=== PATIENT | female | born 1935 | race Caucasian/White ===

== ENCOUNTER → 2016-10-02 | Outpatient (CLI) | payer MEDICARE, BC ==
[~2016-10-02] MED LIST: ASPI81TA11 OR; AZIT250T74 PO; GLUCTAB PO; GUAI100S6 PO; GUAI600 PO; Losartan Potassium PO; PRED5PAK PO; PROT40TA PO; VENL75 PO
[2016-10-02 09:31] LABS: AUTOMATED NEUTROPHIL # 4.9 TH/MM3 (1.8-7.7); BASOPHIL # 0.1 TH/MM3 (0-0.2); BASOPHIL % 0.9 % (0.0-2.0); EOSINOPHIL # 0.3 TH/MM3 (0-0.4); HEMATOCRIT 37.8 % (35.0-46.0); HEMO FLAGS DIFF FINAL; LYMPH % 20.1 % (9.0-44.0); LYMPHOCYTE # 1.4 TH/MM3 (1.0-4.8); MEAN CELL VOLUME 83.3 FL (80.0-100.0); MEAN CORPUSCULAR HEMOGLOBIN 26.8 PG (27.0-34.0); MEAN CORPUSCULAR HGB CONC 32.2 % (32.0-36.0); MONO % 5.5 % (0.0-8.0); NEUT % 69.5 % (16.0-70.0); PLATELET COUNT 200 TH/MM3 (150-450); RED BLOOD COUNT 4.53 MIL/MM3 (4.00-5.30); RED CELL DISTRIBUTION WIDTH 14.5 % (11.6-17.2)
[2016-10-02 09:50] LABS: ALKALINE PHOSPHATASE 61 U/L (45-117); ALT (GPT) 97 U/L (10-53); ANION GAP 9 MEQ/L (5-15); AST (GOT) 74 U/L (15-37); BICARBONATE 28.5 MEQ/L (21.0-32.0); BLOOD UREA NITROGEN 19 MG/DL (7-18); CHLORIDE 105 MEQ/L (98-107); GLOMERULAR FILTRATION RATE 49 ML/MIN (>89); GLUCOSE,FASTING 166 MG/DL (74-99); HDL CHOLESTEROL 39.4 MG/DL (40.0-60.0); LDL CHOLESTEROL 94 MG/DL (0-99); POTASSIUM 4.3 MEQ/L (3.5-5.1); SODIUM (NA) 142 MEQ/L (136-145); TOTAL BILIRUBIN ADULT 0.4 MG/DL (0.2-1.0)
[2016-10-02 16:14] LABS: HEMOGLOBIN A1b 2.6 %; HEMOGLOBIN Ao 81.8 %; HEMOGLOBIN LA1C 2.5 %; HEMOGLOBIN P3 4.4 %
== END ==
LOC: PLAB 07:27
PROVIDERS: ATTEND Family Medicine
DX: E11.40 Type 2 diabetes mellitus with diabetic neuropathy, unspecified (principal); E78.5 Hyperlipidemia, unspecified; I10 Essential (primary) hypertension
CPT/HCPCS: 36415; 80053; 80061; 83036; 84443; 85025

== ENCOUNTER → 2017-01-16 | Outpatient (CLI) | payer MEDICARE, BC | LOC: PLAB 15:25 | PROVIDERS: ATTEND Psychiatry & Neurology Neurology | DX: E11.42 Type 2 diabetes mellitus with diabetic polyneuropathy (principal) | CPT/HCPCS: 36415; 82607 ==

== ENCOUNTER → 2017-01-22 | Outpatient (CLI) | payer MEDICARE, BC ==
[2017-01-22 08:56] LABS: AUTOMATED NEUTROPHIL # 4.3 TH/MM3 (1.8-7.7); BASOPHIL # 0.1 TH/MM3 (0-0.2); BASOPHIL % 0.9 % (0.0-2.0); EOSINOPHIL # 0.3 TH/MM3 (0-0.4); EOSINOPHIL % 4.6 % (0.0-4.0); HEMATOCRIT 37.3 % (35.0-46.0); HEMO FLAGS DIFF FINAL; LYMPH % 21.4 % (9.0-44.0); LYMPHOCYTE # 1.4 TH/MM3 (1.0-4.8); MEAN CELL VOLUME 83.8 FL (80.0-100.0); MEAN CORPUSCULAR HEMOGLOBIN 26.9 PG (27.0-34.0); MEAN CORPUSCULAR HGB CONC 32.2 % (32.0-36.0); MONO % 6.2 % (0.0-8.0); NEUT % 66.9 % (16.0-70.0); PLATELET COUNT 215 TH/MM3 (150-450); RED BLOOD COUNT 4.46 MIL/MM3 (4.00-5.30); RED CELL DISTRIBUTION WIDTH 14.2 % (11.6-17.2); WHITE BLOOD COUNT 6.4 TH/MM3 (4.0-11.0)
[2017-01-22 10:39] LABS: ANION GAP 11 MEQ/L (5-15); AST (GOT) 72 U/L (15-37); BICARBONATE 24.5 MEQ/L (21.0-32.0); BLOOD UREA NITROGEN 23 MG/DL (7-18); CHLORIDE 107 MEQ/L (98-107); GLOMERULAR FILTRATION RATE 52 ML/MIN (>89); GLUCOSE,FASTING 174 MG/DL (74-99); POTASSIUM 4.3 MEQ/L (3.5-5.1); SODIUM (NA) 142 MEQ/L (136-145)
[2017-01-22 10:53] LABS: ALKALINE PHOSPHATASE 67 U/L (45-117); ALT (GPT) 100 U/L (10-53); HDL CHOLESTEROL 36.3 MG/DL (40.0-60.0); LDL CHOLESTEROL 114 MG/DL (0-99); TOTAL BILIRUBIN ADULT 0.3 MG/DL (0.2-1.0)
[2017-01-22 11:52] LABS: MICRO ALBUMIN RANDOM URINE RAW 28.9 MG/L (0.0-30.0)
[2017-01-22 16:49] LABS: HEMOGLOBIN A1a 1.1 %; HEMOGLOBIN A1b 2.5 %; HEMOGLOBIN Ao 80.6 %; HEMOGLOBIN LA1C 2.7 %; HEMOGLOBIN P3 4.6 %
== END ==
LOC: PLAB 07:10
PROVIDERS: ATTEND Family Medicine
DX: E78.5 Hyperlipidemia, unspecified (principal); I70.209 Unspecified atherosclerosis of native arteries of extremities, unspecified extremity; E11.40 Type 2 diabetes mellitus with diabetic neuropathy, unspecified; R74.8 Abnormal levels of other serum enzymes; Z51.81 Encounter for therapeutic drug level monitoring
CPT/HCPCS: 36415; 80053; 80061; 82043; 83036; 84443; 85025

== ENCOUNTER → 2017-04-09 | Outpatient (CLI) | payer MEDICARE, BC ==
[2017-04-09 09:36] LABS: ANION GAP 10 MEQ/L (5-15); AST (GOT) 53 U/L (15-37); BICARBONATE 25.2 MEQ/L (21.0-32.0); BLOOD UREA NITROGEN 15 MG/DL (7-18); CHLORIDE 105 MEQ/L (98-107); GLOMERULAR FILTRATION RATE 44 ML/MIN (>89); GLUCOSE,FASTING 289 MG/DL (74-99); POTASSIUM 4.5 MEQ/L (3.5-5.1); SODIUM (NA) 140 MEQ/L (136-145)
[2017-04-09 09:37] LABS: ALT (GPT) 87 U/L (10-53)
[2017-04-09 09:45] LABS: ALKALINE PHOSPHATASE 92 U/L (45-117); FREE T4 1.16 NG/DL (0.76-1.46); HDL CHOLESTEROL 39.7 MG/DL (40.0-60.0); LDL CHOLESTEROL 92 MG/DL (0-99); TOTAL BILIRUBIN ADULT 0.3 MG/DL (0.2-1.0)
[2017-04-09 10:29] LABS: MICRO ALBUMIN RANDOM URINE RAW 46.5 MG/L (0.0-30.0)
[2017-04-09 16:41] LABS: HEMOGLOBIN A1a 1.1 %; HEMOGLOBIN A1b 2.8 %; HEMOGLOBIN Ao 78.6 %; HEMOGLOBIN LA1C 3.7 %; HEMOGLOBIN P3 5.3 %
== END ==
LOC: PLAB 06:40
PROVIDERS: ATTEND Internal Medicine Endocrinology, Diabetes & Metabolism
DX: E11.9 Type 2 diabetes mellitus without complications (principal); I10 Essential (primary) hypertension; E78.5 Hyperlipidemia, unspecified; E55.9 Vitamin D deficiency, unspecified; E03.9 Hypothyroidism, unspecified
CPT/HCPCS: 36415; 80053; 80061; 82043; 82306; 83036; 84439; 84443

== ENCOUNTER → 2017-08-20 | Outpatient (CLI) | payer MEDICARE, BC ==
[2017-08-20 10:12] LABS: ALBUMIN 3.8 GM/DL (3.4-5.0); ALT (GPT) 74 U/L (10-53); AST (GOT) 66 U/L (15-37); BICARBONATE 28.4 MEQ/L (21.0-32.0); BLOOD UREA NITROGEN 16 MG/DL (7-18); CALCIUM 9.4 MG/DL (8.5-10.1); CHLORIDE 104 MEQ/L (98-107); CHOLESTEROL 165 MG/DL (120-200); CREATININE 1.13 MG/DL (0.50-1.00); GLOMERULAR FILTRATION RATE 46 ML/MIN (>89); GLUCOSE,FASTING 174 MG/DL (74-99); SODIUM (NA) 140 MEQ/L (136-145); TRIGLYCERIDES 258 MG/DL (42-150)
[2017-08-20 10:20] LABS: ALKALINE PHOSPHATASE 67 U/L (45-117); CHOLESTEROL/ HDL RATIO 5.22 RATIO; FREE T4 1.19 NG/DL (0.76-1.46); HDL CHOLESTEROL 31.6 MG/DL (40.0-60.0); LDL CHOLESTEROL 82 MG/DL (0-99); TOTAL BILIRUBIN ADULT 0.4 MG/DL (0.2-1.0); TOTAL PROTEIN 7.3 GM/DL (6.4-8.2)
[2017-08-20 16:48] LABS: HEMOGLOBIN A1C 7.5 % (4.3-6.0)
== END ==
LOC: PLAB 07:05
PROVIDERS: ATTEND Internal Medicine Endocrinology, Diabetes & Metabolism
DX: E11.9 Type 2 diabetes mellitus without complications (principal); E78.5 Hyperlipidemia, unspecified; E03.9 Hypothyroidism, unspecified; E55.9 Vitamin D deficiency, unspecified
CPT/HCPCS: 36415; 80053; 80061; 82043; 82306; 83036; 84439; 84443

== ENCOUNTER 2017-09-29 20:58 | Observation (INO) | payer MEDICARE, BC ==
[2017-09-29 21:03] VITALS: BP 173/78; PULSE 76; RESP 22; TEMP 98.7
--- NOTE | 2017-09-29 21:20 | PD ---
HPI Chief Complaint: Respiratory Symptoms Time Seen by Provider: 21:12 Travel History International Travel<30 days: No Contact w/Intl Traveler<30days: No Traveled to known affect area: No History of Present Illness HPI 82yo F with PMH of DM, COPD here with c/o sob and worsening cough for 1 week. Denies any fever, chest pain, n/v, abdominal pain, focal weakness or numbness. Pt uses oxygen at home at night about 2 L. Director Of Professional Services is Dr. Tellez. PFSH Past Medical History Arthritis: Yes (Hands,back) Anxiety: No Depression: Yes Cancer: Yes (SKIN KERATOSIS) Cardiovascular Problems: Yes High Cholesterol: Yes Chemotherapy: No Diabetes: Yes Diminished Hearing: No Diverticulitis: Yes Endocrine: Yes Gastrointestinal Disorders: Yes (DIVERTICULOSIS) GERD: Yes Genitourinary: No Hepatitis: Yes (HX HEP A, IMMUNIZATIONS FOR HEP B, FATTY LIVER) Hiatal Hernia: No Hypertension: No Immune Disorder: No Implanted Vascular Access Dvce: Yes Musculoskeletal: Yes Neurologic: Yes (UNSURE IF VERTIGO OR TIA) Psychiatric: Yes Reproductive: No Respiratory: Yes (COPD) Thyroid Disease: Yes ("LUMP ON EACH THYROID") PNEUMOCCOCAL Vaccine (Year): 2 Menopausal: Yes Ovarian Cysts: Yes Past Surgical History Abdominal Surgery: Yes (APPENDECTOMY) AICD: No Appendectomy: Yes Body Medical Devices: lens Cardiac Surgery: No Ear Surgery: No Endocrine Surgery: No Eye Surgery: Yes (LENS IMPLANT BILATERALLY) Genitourinary Surgery: No Gynecologic Surgery: Yes (OVARIAN CYST REMOVED MANY YEARS AGO) Joint Replacement: No Neurologic Surgery: No Oral Surgery: No Pacemaker: No Thoracic Surgery: No Other Surgery: Yes Social History Alcohol Use: Yes (RARELY) Tobacco Use: No Substance Use: No Allergies-Medications (Allergen,Severity, Reaction): Coded Allergies: No Known Allergies (Verified , 07/01/14) Reported Meds & Prescriptions Reported Meds & Active Scripts Active Prednisone 5 Mg Sam 5 Mg PO DIRECTED 5 Days [Losartan Potassium] 50 MG Tab 50 Mg PO DAILY Mucinex 600 Mg Tab (Guaifenesin) 600 Mg Tabcr 600 Mg PO BID Zithromax (Azithromycin) 250 Mg Tab 250 Mg PO DAILY Reported Effexor 75 Mg Tab (Venlafaxine HCl) 75 Mg Tab 75 Mg PO BID Protonix (Pantoprazole Sodium) 40 Mg Tabdr 40 Mg PO DAILY Robitussin Ac (Guaifenesin/Codeine Phosphate) Syrp 5-10 Ml PO Q6H PRN FOR COUGH Aspirin EC 81 mg (Aspirin) 81 Mg Tab 81 Mg OR DAILY Glucophage (Metformin HCl) 500 Mg Tab 850 Mg PO BID Review of Systems Except as stated in HPI: all other systems reviewed are Neg Physical Exam Narrative GENERAL: 82yo F in mild distress. SKIN: Focused skin assessment warm/dry. HEAD: Atraumatic. Normocephalic. EYES: Pupils equal and round. No scleral icterus. No injection or drainage. ENT: No nasal bleeding or discharge. Mucous membranes pink and moist. NECK: Trachea midline. No JVD. CARDIOVASCULAR: Regular rate and rhythm. No murmur appreciated. RESPIRATORY: + accessory muscle use. Expiratory wheezing bilaterally. GASTROINTESTINAL: Abdomen soft, non-tender, nondistended. MUSCULOSKELETAL: No obvious deformities. No clubbing. No cyanosis. No edema. NEUROLOGICAL: Awake and alert. No obvious cranial nerve deficits. Motor grossly within normal limits. Normal speech. PSYCHIATRIC: Appropriate mood and affect; insight and judgment normal. Data Data Last Documented VS Vital Signs Date Time Temp Pulse Resp B/P (MAP) Pulse Ox O2 Delivery O2 Flow Rate FiO2 09/29/17 21:55 85 20 149/73 (98) 96 09/29/17 21:55 Nasal Cannula 2.00 09/29/17 21:03 98.7 Orders Orders Complete Blood Count With Diff (09/29/17 21:17) Basic Metabolic Panel (Bmp) (09/29/17 21:17) Troponin I (09/29/17 21:17) Influenzae A/B Antigen (09/29/17 21:17) Electrocardiogram (09/29/17 21:17) Chest, Single Ap (09/29/17 21:17) Methylprednisolone So Succ Inj (Solumedr (09/29/17 21:30) Albuterol-Ipratropium Neb (Duoneb Neb) (09/29/17 21:30) Labs Laboratory Tests Test 09/29/17 21:30 White Blood Count 4.8 TH/MM3 Red Blood Count 4.53 MIL/MM3 Hemoglobin 12.3 GM/DL Hematocrit 37.1 % Mean Corpuscular Volume 82.0 FL Mean Corpuscular Hemoglobin 27.1 PG Mean Corpuscular Hemoglobin Concent 33.0 % Red Cell Distribution Width 14.0 % Platelet Count 167 TH/MM3 Mean Platelet Volume 8.9 FL Neutrophils (%) (Auto) 61.9 % Lymphocytes (%) (Auto) 22.7 % Monocytes (%) (Auto) 8.7 % Eosinophils (%) (Auto) 3.5 % Basophils (%) (Auto) 3.2 % Neutrophils # (Auto) 2.9 TH/MM3 Lymphocytes # (Auto) 1.1 TH/MM3 Monocytes # (Auto) 0.4 TH/MM3 Eosinophils # (Auto) 0.2 TH/MM3 Basophils # (Auto) 0.2 TH/MM3 CBC Comment DIFF FINAL Differential Comment Blood Urea Nitrogen 18 MG/DL Creatinine 1.00 MG/DL Random Glucose 184 MG/DL Calcium Level 8.5 MG/DL Sodium Level 140 MEQ/L Potassium Level 4.0 MEQ/L Chloride Level 105 MEQ/L Carbon Dioxide Level 25.3 MEQ/L Anion Gap 10 MEQ/L Estimat Glomerular Filtration Rate 53 ML/MIN Troponin I LESS THAN 0.02 NG/ML MDM Medical Decision Making Medical Screen Exam Complete: Yes Emergency Medical Condition: Yes Interpretation(s) EKG: NSR 70bpm. Normal axis. TWI V2, aVL. Differential Diagnosis COPD exacerbation vs. Pneumonia Narrative Course 82yo F with sob and cough for a week. Pt is wheezing bilaterally and given duonebs x3 and methylprednisolone 125mg IV. Labs reviewed, no leukocytosis. H/ H normal. Troponin negative. Influenza negative. CXR showed patchy airspace disease scattered in both lungs. Consideration would include inflammatory process. Pt reevaluated at bedside and is still sob and wheezing bilaterally. Will admit for observation. Discussed with Dr. Childers and accepted to her service. Diagnosis Primary Impression: COPD exacerbation Admitting Information Admitting Physician Requests: Observation Brittnee Goodman DO Sep 29, 2017 21:20
[2017-09-29] MEDS ORDERED: methylPREDNISolone SOD SUCC 125 MG/2 ML VIAL IV PUSH ONE (21:30)
[2017-09-29 21:37] VITALS: O2SAT 95
[2017-09-29] MEDS: RESP: ALBUTEROL 2.5 MG/IPRATROPIUM 0.5 MG NEB (SCH) INH ×3 (21:37→22:00)
[2017-09-29 21:40] LABS: AUTOMATED NEUTROPHIL # 2.9 TH/MM3 (1.8-7.7); BASOPHIL # 0.2 TH/MM3 (0-0.2); BASOPHIL % 3.2 % (0.0-2.0); EOSINOPHIL # 0.2 TH/MM3 (0-0.4); EOSINOPHIL % 3.5 % (0.0-4.0); HEMATOCRIT 37.1 % (35.0-46.0); HEMOGLOBIN 12.3 GM/DL (11.6-15.3); LYMPH % 22.7 % (9.0-44.0); LYMPHOCYTE # 1.1 TH/MM3 (1.0-4.8); MEAN CORPUSCULAR HEMOGLOBIN 27.1 PG (27.0-34.0); MEAN PLATELET VOLUME 8.9 FL (7.0-11.0); MONO % 8.7 % (0.0-8.0); MONOCYTE # 0.4 TH/MM3 (0-0.9); NEUT % 61.9 % (16.0-70.0); PLATELET COUNT 167 TH/MM3 (150-450); RED BLOOD COUNT 4.53 MIL/MM3 (4.00-5.30); WHITE BLOOD COUNT 4.8 TH/MM3 (4.0-11.0)
[2017-09-29 21:48] LABS: CHLORIDE 105 MEQ/L (98-107); SODIUM (NA) 140 MEQ/L (136-145)
[2017-09-29 21:51] LABS: CALCIUM 8.5 MG/DL (8.5-10.1)
[2017-09-29 21:52] LABS: BICARBONATE 25.3 MEQ/L (21.0-32.0); BLOOD UREA NITROGEN 18 MG/DL (7-18); GLUCOSE,RANDOM 184 MG/DL (74-106)
[2017-09-29 21:55] VITALS: BP 149/73; PULSE 85; RESP 20; O2SAT 96
[2017-09-29 21:55] LABS: GLOMERULAR FILTRATION RATE 53 ML/MIN (>89)
[2017-09-29 22:00] LABS: TROPONIN I LESS THAN 0.02 NG/ML (0.02-0.05)
--- NOTE | 2017-09-29 22:02 | RADRPT ---
EXAM DATE/TIME: 09/29/2017 21:44 [facility] COMPARISON: No previous studies available for comparison. INDICATIONS : Shortness of breath. MEDICAL HISTORY : Chronic obstructive pulmonary disease. SURGICAL HISTORY : None. ENCOUNTER: Initial ACUITY: 1 week PAIN SCORE: 0/10 LOCATION: Bilateral chest FINDINGS: Patchy airspace disease is seen in both right and left lungs with compensated cardiomegaly. No failu re, no pleural effusion or pneumothorax CONCLUSION: Patchy airspace disease scattered in both lungs. Consideration would include inflammatory process. Jose Farr MD FACR on September 29, 2017 at 21:59 Board Certified Radiologist. This report was verified electronically.
[2017-09-29 23:00] VITALS: BP 132/76; PULSE 84; RESP 20; O2SAT 98
[2017-09-29] MEDS ORDERED: GLUCAGON 1 MG/ML VIAL OTHER PRN (23:15)
[2017-09-29] MEDS ORDERED: MAGNESIUM HYDROXIDE SUSP 30 ML CUP PO PRN (23:15)
[2017-09-29] MEDS ORDERED: DEXTROSE 50% IN WATER 50 ML VIAL(D50) IV PUSH PRN (23:15)
[2017-09-29] MEDS ORDERED: ACETAMINOPHEN 325 MG TAB PO PRN (23:15)
[2017-09-29] MEDS ORDERED: ACETAMINOPHEN/HYDROcodone 325 MG/5 MG TAB PO PRN (23:15)
[2017-09-29] MEDS ORDERED: LACTULOSE SYRUP 20 GM/30 ML CUP PO PRN (23:15)
[2017-09-29] MEDS ORDERED: BISACODYL 10 MG SUPP RECTAL PRN (23:15)
[2017-09-29] MEDS ORDERED: SENNOSIDES 8.6 MG TAB PO PRN (23:15)
[2017-09-29] MEDS ORDERED: SODIUM CHLORIDE 0.9% FLUSH 10 ML FLUSH IV FLUSH PRN (23:15)
[2017-09-29] MEDS ORDERED: ONDANSETRON HCL 4 MG/2 ML VIAL IVP PRN (23:15)
[2017-09-29] MEDS ORDERED: ACETAMINOPHEN/HYDROcodone 325 MG/10 MG TAB PO PRN (23:15)
[2017-09-30] VITALS (7 sets, daily range): BP systolic 135–184; BP diastolic 73–103; PULSE 72–84; RESP 18–20; TEMP 96.4–98.7; O2SAT 91–96
[2017-09-30] MEDS: methylPREDNISolone SOD SUCC 40 MG/1 ML VIAL IV PUSH SCH ×4 (05:32→17:30)
[2017-09-30 07:30] LABS: BASOPHIL % 0.1 % (0.0-2.0); EOSINOPHIL % 0.1 % (0.0-4.0); HEMATOCRIT 36.9 % (35.0-46.0); HEMOGLOBIN 11.5 GM/DL (11.6-15.3); LYMPH % 11.4 % (9.0-44.0); LYMPHOCYTE # 0.4 TH/MM3 (1.0-4.8); MEAN CELL VOLUME 82.9 FL (80.0-100.0); MEAN CORPUSCULAR HEMOGLOBIN 25.8 PG (27.0-34.0); MEAN CORPUSCULAR HGB CONC 31.1 % (32.0-36.0); MEAN PLATELET VOLUME 10.1 FL (7.0-11.0); MONO % 1.5 % (0.0-8.0); MONOCYTE # 0.1 TH/MM3 (0-0.9); NEUT % 86.9 % (16.0-70.0); PLATELET COUNT 168 TH/MM3 (150-450); RED BLOOD COUNT 4.45 MIL/MM3 (4.00-5.30); RED CELL DISTRIBUTION WIDTH 14.1 % (11.6-17.2); WHITE BLOOD COUNT 3.5 TH/MM3 (4.0-11.0)
[2017-09-30 07:40] LABS: CHLORIDE 103 MEQ/L (98-107); SODIUM (NA) 138 MEQ/L (136-145)
[2017-09-30 07:45] LABS: ALBUMIN 3.2 GM/DL (3.4-5.0); BICARBONATE 24.7 MEQ/L (21.0-32.0)
[2017-09-30 07:57] LABS: ALKALINE PHOSPHATASE 59 U/L (45-117); ALT (GPT) 79 U/L (10-53); AST (GOT) 63 U/L (15-37); BLOOD UREA NITROGEN 20 MG/DL (7-18); GLUCOSE,RANDOM 388 MG/DL (74-106); TOTAL BILIRUBIN ADULT 0.4 MG/DL (0.2-1.0); TOTAL PROTEIN 7.1 GM/DL (6.4-8.2)
[2017-09-30 07:58] LABS: GLOMERULAR FILTRATION RATE 48 ML/MIN (>89)
[2017-09-30] MEDS ORDERED: INSULIN ASPART SUPPLEMENTAL SCALE SQ SCH (08:00)
[2017-09-30] MEDS: DOCUSATE SODIUM 50 MG/SENNA 8.6 MG TAB PO SCH ×2 (09:20→22:14)
[2017-09-30] MEDS: guaiFENesin E.R. 600 MG TAB PO SCH ×2 (09:20→22:14)
[2017-09-30] MEDS: SODIUM CHLORIDE 0.9% FLUSH 10 ML FLUSH IV FLUSH SCH ×2 (09:21→22:15)
[2017-09-30] MEDS: BUDESONIDE-FORMOTEROL 160/4.5 MCG INHALER INH SCH ×2 (09:50→21:00)
--- NOTE | 2017-09-30 11:49 | HHI.HP ---
HPI Service [facility] Hospitalists Primary Care Physician Eladio Muhammad MD Admission Diagnosis COPD exacerbation Diagnoses: Chief Complaint: Shortness of breath, wheezing Travel History International Travel<30 Days: No Contact w/Intl Traveler <30 Da: No Traveled to Known Affected Are: No History of Present Illness The patient is a very pleasant 82-year-old female with past medical history of COPD, diabetes mellitus who came to the emergency room with the worsening shortness of breath and cough for 1 week. Associated wheezing worsening. Patient says she follows with Dr. Tellez pulmonology as outpatient she is also using at times oxygen 2 L at night. She has a nonproductive cough but sometimes she notices clear or white sputum. She denies any fever or chills. Denies chest pain, no nausea or vomiting. No lightheadedness, diaphoresis. Review of Systems Except as stated in HPI: all other systems reviewed are Neg Past Family Social History Past Medical History COPD, diabetes mellitus Diverticulosis Past Surgical History Ovarian cyst removal Appendectomy Reported Medications Reported Meds & Active Scripts Active Prednisone 5 Mg Sam 5 Mg PO DIRECTED 5 Days [Losartan Potassium] 50 MG Tab 50 Mg PO DAILY Mucinex 600 Mg Tab (Guaifenesin) 600 Mg Tabcr 600 Mg PO BID Zithromax (Azithromycin) 250 Mg Tab 250 Mg PO DAILY Reported Effexor 75 Mg Tab (Venlafaxine HCl) 75 Mg Tab 75 Mg PO BID Protonix (Pantoprazole Sodium) 40 Mg Tabdr 40 Mg PO DAILY Robitussin Ac (Guaifenesin/Codeine Phosphate) Syrp 5-10 Ml PO Q6H PRN FOR COUGH Aspirin EC 81 mg (Aspirin) 81 Mg Tab 81 Mg OR DAILY Glucophage (Metformin HCl) 500 Mg Tab 850 Mg PO BID Allergies: Coded Allergies: No Known Allergies (Verified , 07/01/14) Family History Sister also has COPD Parents healthy. Does not know much about her father as she at young age Social History Quit smoking 30 years ago used to smoke 1 pack per day approximately 15 years. Denies alcohol use or illicit drug use. Physical Exam Vital Signs Vital Signs Date Time Temp Pulse Resp B/P (MAP) Pulse Ox O2 Delivery O2 Flow Rate FiO2 09/30/17 07:50 96.4 75 20 135/77 (96) 93 09/30/17 01:15 97.6 84 18 184/103 (130) 95 09/30/17 00:37 82 20 149/73 (98) 97 09/29/17 23:00 84 20 132/76 (94) 98 09/29/17 21:55 85 20 149/73 (98) 96 09/29/17 21:55 83 24 97 Nasal Cannula 2.00 09/29/17 21:37 95 Nasal Cannula 2.00 09/29/17 21:03 98.7 76 22 173/78 (109) Physical Exam GENERAL: This is a well-nourished, well-developed patient, in no apparent distress. SKIN: No rashes, ecchymoses or lesions. Cool and dry. HEAD: Atraumatic. Normocephalic. No temporal or scalp tenderness. EYES: Pupils equal round and reactive. Extraocular motions intact. No scleral icterus. No injection or drainage. ENT: Nose without bleeding, purulent drainage or septal hematoma. Throat without erythema, tonsillar hypertrophy or exudate. Uvula midline. Airway patent. NECK: Trachea midline. No JVD or lymphadenopathy. Supple, nontender, no meningeal signs. CARDIOVASCULAR: Regular rate and rhythm without murmurs, gallops, or rubs. RESPIRATORY: Decreased breath sounds. Scattered wheezing, bronchial sounds. Shortness of breath and cough GASTROINTESTINAL: Abdomen soft, non-tender, nondistended. No hepato-splenomegaly , or palpable masses. No guarding. MUSCULOSKELETAL: Extremities without clubbing, cyanosis, or edema. No joint tenderness, effusion, or edema noted. No calf tenderness. Negative Homans sign bilaterally. NEUROLOGICAL: Awake and alert. Cranial nerves II through XII intact. Motor and sensory grossly within normal limits. Five out of 5 muscle strength in all muscle groups. Normal speech. Laboratory Laboratory Tests Test 09/29/17 21:30 09/30/17 06:40 White Blood Count 4.8 3.5 Red Blood Count 4.53 4.45 Hemoglobin 12.3 11.5 Hematocrit 37.1 36.9 Mean Corpuscular Volume 82.0 82.9 Mean Corpuscular Hemoglobin 27.1 25.8 Mean Corpuscular Hemoglobin Concent 33.0 31.1 Red Cell Distribution Width 14.0 14.1 Platelet Count 167 168 Mean Platelet Volume 8.9 10.1 Neutrophils (%) (Auto) 61.9 86.9 Lymphocytes (%) (Auto) 22.7 11.4 Monocytes (%) (Auto) 8.7 1.5 Eosinophils (%) (Auto) 3.5 0.1 Basophils (%) (Auto) 3.2 0.1 Neutrophils # (Auto) 2.9 3.0 Lymphocytes # (Auto) 1.1 0.4 Monocytes # (Auto) 0.4 0.1 Eosinophils # (Auto) 0.2 0.0 Basophils # (Auto) 0.2 0.0 CBC Comment DIFF FINAL DIFF FINAL Differential Comment Blood Urea Nitrogen 18 20 Creatinine 1.00 1.10 Random Glucose 184 388 Calcium Level 8.5 9.0 Sodium Level 140 138 Potassium Level 4.0 4.8 Chloride Level 105 103 Carbon Dioxide Level 25.3 24.7 Anion Gap 10 10 Estimat Glomerular Filtration Rate 53 48 Troponin I LESS THAN 0.02 Total Protein 7.1 Albumin 3.2 Alkaline Phosphatase 59 Aspartate Amino Transf (AST/SGOT) 63 Alanine Aminotransferase (ALT/SGPT) 79 Total Bilirubin 0.4 Date/Time Source Procedure Growth Status 09/29/17 21:30 Nasal Aspirate Influenza Types A,B Antigen (BRITTA) - Final NEGATIVE FOR FLU A AND B ANTIGEN.... Complete Result Diagram: 09/30/17 0640 09/30/17 0640 Caprini VTE Risk Assessment Caprini VTE Risk Assessment: Mod/High Risk (score >= 2) Caprini Risk Assessment Model Point Value = 1 Point Value = 2 Point Value = 3 Point Value = 5 Age 41-60 Minor surgery BMI > 25 kg/m2 Swollen legs Varicose veins or History of unexplained or recurrent spontaneous Oral contraceptives or hormone replacement Sepsis (< 1 month) Serious lung disease, including pneumonia (< 1 month) Abnormal pulmonary function Acute myocardial infarction Congestive heart failure (< 1 month) History of inflammatory bowel disease Medical patient at bed rest Age 61-74 Arthroscopic surgery Major open surgery (> 45 min) Laparoscopic surgery (> 45 min) Malignancy Confined to bed (> 72 hours) Immobilizing plaster cast Central venous access Age >= 75 History of VTE Family history of VTE Factor V Leiden Prothrombin [id number] Lupus anticoagulant Anticardiolipin antibodies Elevated serum homocysteine Heparin-induced thrombocytopenia Other congenital or acquired thrombophilia Stroke (< 1 month) Elective arthroplasty Hip, pelvis, or leg fracture Acute spinal cord injury (< 1 month) Prophylaxis Regimen Total Risk Factor Score Risk Level Prophylaxis Regimen 0-1 Low Early ambulation 2 Moderate Order ONE of the following: *Sequential Compression Device (SCD) *Heparin 5000 units SQ BID 3-4 Higher Order ONE of the following medications: *Heparin 5000 units SQ TID *Enoxaparin/Lovenox 40 mg SQ daily (WT < 150 kg, CrCl > 30 mL/min) *Enoxaparin/Lovenox 30 mg SQ daily (WT < 150 kg, CrCl > 10-29 mL/min) *Enoxaparin/Lovenox 30 mg SQ BID (WT < 150 kg, CrCl > 30 mL/min) AND/OR *Sequential Compression Device (SCD) 5 or more Highest Order ONE of the following medications: *Heparin 5000 units SQ TID (Preferred with Epidurals) *Enoxaparin/Lovenox 40 mg SQ daily (WT < 150 kg, CrCl > 30 mL/min) *Enoxaparin/Lovenox 30 mg SQ daily (WT < 150 kg, CrCl > 10-29 mL/min) *Enoxaparin/Lovenox 30 mg SQ BID (WT < 150 kg, CrCl > 30 mL/min) AND *Sequential Compression Device (SCD) Assessment and Plan Assessment and Plan COPD with exacerbation Bilateral pneumonia Diabetes mellitus type 2 Obtain blood cultures, sputum cultures Start azithromycin and Rocephin IV antibiotics Monitor on telemetry Oxygen supplement keep oxygen saturation more than 92%. Follows with pulmonology Dr. Tellez consider consulting her radiology aide if patient does not improve Duo nebs scheduled and as needed Solu-Medrol 40 mg every 6 hours taper steroids as tolerated. Mucinex Incentive spirometry Monitor blood sugar while on steroids as might worsen. Insulin sliding scale and Accu-Cheks Restart home medications as appropriate DVT prophylaxis SCDs/teds/Lovenox Discussed Condition With pt, nurse Christel Davis MD Sep 30, 2017 11:49
[2017-09-30] MEDS: AZITHROMYCIN INJ 500 MG in SODIUM CHLOR 0.9% 250 ML INJ 250 ML IV SCH (13:01)
[2017-09-30] MEDS: ENOXAPARIN SODIUM 40 MG/0.4 ML SYRINGE SQ SCH (13:08)
[2017-09-30] MEDS ORDERED: DEXTROSE 50% IN WATER 50 ML VIAL(D50) IV PUSH PRN (13:15)
[2017-09-30] MEDS: cefTRIAXone INJ 1,000 MG in SODIUM CHLORIDE 0.9% INJ 100 ML IV SCH (14:38)
[2017-09-30] MEDS: INSULIN ASPART SUPPLEMENTAL SCALE SQ SCH ×2 (17:30→22:15)
[2017-09-30] MEDS ORDERED: ENALAPRILAT 2.5 MG/2 ML VIAL IV PUSH PRN (18:15)
--- NOTE | 2017-09-30 19:47 | EKG ---
Date Performed: 09/29/2017 Time Performed: 21:36:29 PTAGE: 82 years EKG: Sinus rhythm NONSPECIFIC ST & T-WAVE ABNORMALITY Since the previous tracing, no significant change noted BORDERLI NE ECG PREVIOUS TRACING : 07/01/2014 14.05 DOCTOR: Lauren Dumont Interpretating Date/Time 09/30/2017 19:45:25
[2017-10-01] MEDS: methylPREDNISolone SOD SUCC 40 MG/1 ML VIAL IV PUSH SCH ×5 (01:12→23:38)
[2017-10-01 07:57] VITALS: O2SAT 95
[2017-10-01 08:00] VITALS: BP 155/83; PULSE 70; TEMP 99
[2017-10-01] MEDS: DOCUSATE SODIUM 50 MG/SENNA 8.6 MG TAB PO SCH ×2 (09:00→21:36)
[2017-10-01] MEDS: BUDESONIDE-FORMOTEROL 160/4.5 MCG INHALER INH SCH ×2 (09:34→21:37)
[2017-10-01] MEDS: guaiFENesin E.R. 600 MG TAB PO SCH ×2 (09:36→21:36)
[2017-10-01] MEDS: INSULIN ASPART SUPPLEMENTAL SCALE SQ SCH ×4 (09:38→21:36)
[2017-10-01] MEDS: SODIUM CHLORIDE 0.9% FLUSH 10 ML FLUSH IV FLUSH SCH ×2 (09:38→21:36)
[2017-10-01] MEDS ORDERED: PNEUMOCOCCAL POLYVALENT INJ 25 MCG/0.5 ML SYR IM ONE (10:00)
[2017-10-01 12:00] VITALS: BP 149/69; PULSE 68; RESP 17; TEMP 97.5; O2SAT 94
[2017-10-01] MEDS ORDERED: INSULIN DETEMIR 100 UNITS/ML VIAL SQ ONE (12:00)
[2017-10-01] MEDS: AZITHROMYCIN INJ 500 MG in SODIUM CHLOR 0.9% 250 ML INJ 250 ML IV SCH (12:15)
[2017-10-01] MEDS: ENOXAPARIN SODIUM 40 MG/0.4 ML SYRINGE SQ SCH (14:20)
[2017-10-01] MEDS: cefTRIAXone INJ 1,000 MG in SODIUM CHLORIDE 0.9% INJ 100 ML IV SCH (14:21)
[2017-10-01] MEDS: RESP: ALBUTEROL 2.5 MG/3 ML NEB (PRN) NEB ×2 (14:48→20:40)
[2017-10-01 16:00] VITALS: BP 147/86; PULSE 84; RESP 24; TEMP 96.7; O2SAT 93
--- NOTE | 2017-10-01 16:31 | HHI.PR ---
Subjective Remarks Patient still complains of respiratory distress. She is improved compared to when she came in. Oxygen dependence remains. Objective Vital Signs Date Time Temp Pulse Resp B/P (MAP) Pulse Ox O2 Delivery O2 Flow Rate FiO2 10/01/17 16:00 96.7 84 24 147/86 (106) 93 10/01/17 12:00 97.5 68 17 149/69 (95) 94 10/01/17 08:00 99.0 70 155/83 (107) 10/01/17 07:57 95 Nasal Cannula 1.00 09/30/17 20:10 95 Nasal Cannula 1.00 I/O 09/30/17 09/30/17 09/30/17 10/01/17 10/01/17 10/01/17 07:00 15:00 23:00 07:00 15:00 23:00 Intake Total 60 ml 250 ml 1060 ml 350 ml Balance 60 ml 250 ml 1060 ml 350 ml Intake Oral 60 ml 960 ml IV Total 250 ml 100 ml 350 ml # Voids 3 14 # Bowel Movements 1 Result Diagram: 09/30/17 0640 09/30/17 0640 Objective Remarks GENERAL: NAD, A&Ox3 HEAD: Normocephalic. NECK: Supple, trachea midline. No lymphadenopathy. EYES: No scleral icterus. No injection or drainage. CARDIOVASCULAR: Regular rate and rhythm without murmurs, gallops, or rubs. RESPIRATORY: Breath sounds equal bilaterally. No accessory muscle use. Wheezing and rhonchi bilaterally. GASTROINTESTINAL: Abdomen soft, non-tender, nondistended. MUSCULOSKELETAL: No cyanosis, or edema. SKIN: Warm and dry. NEURO: No focal neurological deficitis. A/P Problem List: (1) COPD exacerbation ICD Code: J44.1 - Chronic obstructive pulmonary disease with (acute) exacerbation Status: Acute (2) GERD (gastroesophageal reflux disease) ICD Code: K21.9 - GERD (gastroesophageal reflux disease) Status: Acute (3) Acute bronchitis ICD Code: J20.9 - Acute bronchitis Status: Acute Assessment and Plan 82-year-old female admitted secondary to COPD exacerbation COPD with exacerbation Bilateral pneumonia Continue Rocephin Continue azithromycin Continue oxygen support Follow clinically for improvement Continue steroids Continue breathing treatments Continue Mucinex Continue incentive spirometry Diabetes mellitus type 2 Follow blood sugars Insulin sliding scale Diabetic diet DVT prophylaxis SCDs Brodie Morgan MD Oct 01, 2017 16:31
[2017-10-01 20:00] VITALS: BP 156/81; PULSE 79; RESP 20; TEMP 96; O2SAT 95
[2017-10-01 20:40] VITALS: O2SAT 96
[2017-10-01] MEDS: diphenhydrAMINE HCL 50 MG CAP PO PRN (21:46)
[2017-10-02] VITALS (7 sets, daily range): BP systolic 126–182; BP diastolic 75–99; PULSE 62–76; RESP 18–20; TEMP 96.3–99.3; O2SAT 94–97
[2017-10-02] MEDS: methylPREDNISolone SOD SUCC 40 MG/1 ML VIAL IV PUSH SCH ×4 (05:47→23:55)
[2017-10-02 06:38] LABS: BASOPHIL % 0.1 % (0.0-2.0); EOSINOPHIL % 0.1 % (0.0-4.0); HEMATOCRIT 33.5 % (35.0-46.0); HEMOGLOBIN 10.8 GM/DL (11.6-15.3); LYMPH % 11.8 % (9.0-44.0); LYMPHOCYTE # 0.8 TH/MM3 (1.0-4.8); MEAN CELL VOLUME 81.8 FL (80.0-100.0); MEAN CORPUSCULAR HEMOGLOBIN 26.3 PG (27.0-34.0); MEAN CORPUSCULAR HGB CONC 32.2 % (32.0-36.0); MEAN PLATELET VOLUME 9.5 FL (7.0-11.0); MONO % 4.3 % (0.0-8.0); MONOCYTE # 0.3 TH/MM3 (0-0.9); NEUT % 83.7 % (16.0-70.0); PLATELET COUNT 185 TH/MM3 (150-450); RED CELL DISTRIBUTION WIDTH 14.2 % (11.6-17.2); WHITE BLOOD COUNT 7.1 TH/MM3 (4.0-11.0)
[2017-10-02 06:45] LABS: CHLORIDE 107 MEQ/L (98-107); SODIUM (NA) 140 MEQ/L (136-145)
[2017-10-02 06:52] LABS: CALCIUM 8.5 MG/DL (8.5-10.1)
[2017-10-02 06:53] LABS: ALBUMIN 3.1 GM/DL (3.4-5.0); BICARBONATE 24.9 MEQ/L (21.0-32.0); BLOOD UREA NITROGEN 29 MG/DL (7-18); GLUCOSE,RANDOM 305 MG/DL (74-106)
[2017-10-02 06:56] LABS: ALT (GPT) 55 U/L (10-53); AST (GOT) 37 U/L (15-37); GLOMERULAR FILTRATION RATE 53 ML/MIN (>89)
[2017-10-02 06:57] LABS: TOTAL BILIRUBIN ADULT 0.1 MG/DL (0.2-1.0); TOTAL PROTEIN 6.5 GM/DL (6.4-8.2)
[2017-10-02 06:58] LABS: ALKALINE PHOSPHATASE 50 U/L (45-117)
[2017-10-02] MEDS: INSULIN ASPART SUPPLEMENTAL SCALE SQ SCH ×4 (08:43→22:21)
[2017-10-02] MEDS: guaiFENesin E.R. 600 MG TAB PO SCH ×2 (08:44→22:20)
[2017-10-02] MEDS: DOCUSATE SODIUM 50 MG/SENNA 8.6 MG TAB PO SCH ×2 (08:44→22:21)
[2017-10-02] MEDS: BUDESONIDE-FORMOTEROL 160/4.5 MCG INHALER INH SCH ×2 (09:00→22:20)
[2017-10-02] MEDS: SODIUM CHLORIDE 0.9% FLUSH 10 ML FLUSH IV FLUSH SCH ×2 (09:00→22:20)
--- NOTE | 2017-10-02 11:16 | HHI.PR ---
Subjective Remarks Gradual improvement seen today in respiratory status and tolerance of ambulation. She reports she still having coughing episodes specifically overnight she had a coughing episode and respiratory distress. With the scrotal improvement she might be stable for discharge tomorrow. Objective Vital Signs Date Time Temp Pulse Resp B/P (MAP) Pulse Ox O2 Delivery O2 Flow Rate FiO2 10/02/17 09:00 99.3 75 18 147/99 (115) 96 10/02/17 00:00 96.3 68 20 126/75 (92) 95 10/01/17 20:40 96 Nasal Cannula 1.00 10/01/17 20:00 96.0 79 20 156/81 (106) 95 10/01/17 16:00 96.7 84 24 147/86 (106) 93 10/01/17 12:00 97.5 68 17 149/69 (95) 94 I/O 10/01/17 10/01/17 10/01/17 10/02/17 10/02/17 10/02/17 07:00 15:00 23:00 07:00 15:00 23:00 Intake Total 350 ml 960 ml 120 ml Balance 350 ml 960 ml 120 ml Intake Oral 960 ml 120 ml IV Total 350 ml # Voids 6 2 # Bowel Movements 2 Result Diagram: 10/02/1715 10/02/17 0615 Objective Remarks GENERAL: NAD, A&Ox3 HEAD: Normocephalic. NECK: Supple, trachea midline. No lymphadenopathy. EYES: No scleral icterus. No injection or drainage. CARDIOVASCULAR: Regular rate and rhythm without murmurs, gallops, or rubs. RESPIRATORY: Breath sounds equal bilaterally. No accessory muscle use. Wheezing and rhonchi bilaterally. GASTROINTESTINAL: Abdomen soft, non-tender, nondistended. MUSCULOSKELETAL: No cyanosis, or edema. SKIN: Warm and dry. NEURO: No focal neurological deficitis. A/P Problem List: (1) COPD exacerbation ICD Code: J44.1 - Chronic obstructive pulmonary disease with (acute) exacerbation Status: Acute (2) GERD (gastroesophageal reflux disease) ICD Code: K21.9 - GERD (gastroesophageal reflux disease) Status: Acute (3) Acute bronchitis ICD Code: J20.9 - Acute bronchitis Status: Acute Assessment and Plan 82-year-old female admitted secondary to COPD exacerbation Anticipate discharge home tomorrow. Continue oxygen as needed and monitoring pulse ox. COPD with exacerbation Bilateral pneumonia Continue Rocephin Continue azithromycin Continue oxygen support Follow clinically for improvement Continue steroids Continue breathing treatments Continue Mucinex Continue incentive spirometry Diabetes mellitus type 2 Follow blood sugars Insulin sliding scale Diabetic diet DVT prophylaxis SCDs Discharge planning Possible discharge home tomorrow Brodie Morgan MD Oct 02, 2017 11:16
[2017-10-02] MEDS: AZITHROMYCIN INJ 500 MG in SODIUM CHLOR 0.9% 250 ML INJ 250 ML IV SCH (11:48)
[2017-10-02] MEDS: cefTRIAXone INJ 1,000 MG in SODIUM CHLORIDE 0.9% INJ 100 ML IV SCH (14:00)
[2017-10-02] MEDS: ENOXAPARIN SODIUM 40 MG/0.4 ML SYRINGE SQ SCH (14:00)
[2017-10-02] MEDS: RESP: ALBUTEROL 2.5 MG/3 ML NEB (PRN) NEB (21:38)
[2017-10-02] MEDS: diphenhydrAMINE HCL 50 MG CAP PO PRN (22:21)
[2017-10-03] VITALS: BP 145/64; PULSE 70; RESP 18; TEMP 96; O2SAT 93
[2017-10-03] MEDS: methylPREDNISolone SOD SUCC 40 MG/1 ML VIAL IV PUSH SCH ×2 (06:22→12:42)
[2017-10-03 07:23] VITALS: O2SAT 93
[2017-10-03] MEDS: RESP: ALBUTEROL 2.5 MG/3 ML NEB (PRN) NEB ×2 (07:23→13:20)
[2017-10-03 08:00] VITALS: BP 157/88; PULSE 64; RESP 15; TEMP 98.6
[2017-10-03] MEDS: guaiFENesin E.R. 600 MG TAB PO SCH (08:23)
[2017-10-03] MEDS: DOCUSATE SODIUM 50 MG/SENNA 8.6 MG TAB PO SCH (08:23)
[2017-10-03] MEDS: INSULIN ASPART SUPPLEMENTAL SCALE SQ SCH ×2 (08:23→12:00)
[2017-10-03] MEDS: SODIUM CHLORIDE 0.9% FLUSH 10 ML FLUSH IV FLUSH SCH (08:24)
[2017-10-03] MEDS: BUDESONIDE-FORMOTEROL 160/4.5 MCG INHALER INH SCH (09:00)
[2017-10-03 11:48] VITALS: BP 135/68; PULSE 65; RESP 17; TEMP 96.5; O2SAT 95
[2017-10-03 12:00] VITALS: BP 133/68; PULSE 65; RESP 17; TEMP 96.7; O2SAT 95
[2017-10-03] MEDS: cefTRIAXone INJ 1,000 MG in SODIUM CHLORIDE 0.9% INJ 100 ML IV SCH (14:00)
[2017-10-03] MEDS: ENOXAPARIN SODIUM 40 MG/0.4 ML SYRINGE SQ SCH (14:00)
[2017-10-03] MEDS ORDERED: AZITHROMYCIN 250 MG TAB PO SCH (14:00)
[2017-10-03] MEDS ORDERED: Budeson-Formot 160-4.5 Mcg Inh INH (14:06)
[2017-10-03] MEDS ORDERED: PRED10 PO (14:06)
[2017-10-03] MEDS ORDERED: LEVA500T33 PO (14:06)
[2017-10-03] MEDS ORDERED: LACTTAB8 PO (14:06)
--- NOTE | 2017-10-03 16:25 | HHI.DS ---
Discharge Summary Admission Date Sep 29, 2017 at 23:17 Discharge Date: Oct 03, 2017 Admitting Diagnosis COPD exacerbation (1) Respiratory failure ICD Code: J96.90 - Respiratory failure, unspecified, unspecified whether with hypoxia or hypercapnia Diagnosis: Principal (2) Hypoxia ICD Code: R09.02 - Hypoxemia Diagnosis: Principal (3) Acute bronchitis ICD Code: J20.9 - Acute bronchitis Diagnosis: Principal Status: Acute (4) Dyspnea ICD Code: R06.00 - Dyspnea Diagnosis: Principal Status: Acute Procedures none Brief History - From Admission The patient is a very pleasant 82-year-old female with past medical history of COPD, diabetes mellitus who came to the emergency room with the worsening shortness of breath and cough for 1 week. Associated wheezing worsening. Patient says she follows with Dr. Tellez pulmonology as outpatient she is also using at times oxygen 2 L at night. She has a nonproductive cough but sometimes she notices clear or white sputum. She denies any fever or chills. Denies chest pain, no nausea or vomiting. No lightheadedness, diaphoresis. CBC/BMP: 10/02/17 0615 10/02/17 0615 Significant Findings Laboratory Tests Test 10/02/17 06:15 Hemoglobin 10.8 GM/DL (11.6-15.3) Hematocrit 33.5 % (35.0-46.0) Mean Corpuscular Hemoglobin 26.3 PG (27.0-34.0) Neutrophils (%) (Auto) 83.7 % (16.0-70.0) Lymphocytes # (Auto) 0.8 TH/MM3 (1.0-4.8) Blood Urea Nitrogen 29 MG/DL (7-18) Random Glucose 305 MG/DL (74-106) Albumin 3.1 GM/DL (3.4-5.0) Alanine Aminotransferase (ALT/SGPT) 55 U/L (10-53) Total Bilirubin 0.1 MG/DL (0.2-1.0) Estimat Glomerular Filtration Rate 53 ML/MIN (>89) Hospital Course Mrs. Frank is an 82-year-old female. She was admitted for COPD exacerbation which was related to bronchitis. She has been trying to treat this as an outpatient and have outpatient treatment failure. Inpatient she was provided with breathing treatments, IV steroids, and antibiotics. Initially she was oxygen dependent due to hypoxia. She showing improvement at this point. She's been able to wean from oxygen bacteremia air. At baseline she is on room air with oxygen use at night. She is now nearing baseline and medically stable and cleared for discharge home today. Pt Condition on Discharge: Stable Discharge Disposition: Discharge Home Discharge Time: <= 30 minutes Discharge Instructions DIET: Follow Instructions for: As Tolerated, No Restrictions Activities you can perform: Regular-No Restrictions Follow up Referrals: PCP Follow-up - 2 Weeks New Medications: Lactobacillus Acidophilus (Lactobacillus Acidophilus) 1 Billion Cell Tab 1 TAB PO TIDAC for Nutritional Supplement, #30 TAB 0 Refills Levofloxacin (Levaquin) 500 Mg Tablet 500 MG PO DAILY for Infection, #5 TAB 0 Refills Prednisone (Prednisone) 10 Mg Tab 10 MG PO DIRECTED for Inflammation, #8 TAB 0 Refills 2 tab by mouth daily, Day 1 to 2 1 tab by mouth daily, Day 3 to 4 1/2 tab by mouth daily, Day 5 to 6 Then stop [Budeson-Formot 160-4.5 Mcg Inh] () 60 PUFF AERO 2 PUFF INH Q12HR, #1 INHALER Continued Medications: Aspirin (Aspirin EC 81 mg) 81 Mg Tab 81 MG OR DAILY Guaifenesin (Mucinex 600 Mg Tab) 600 Mg Tabcr 600 MG PO BID for cough, #20 TABCR NO REFILLS Refills Guaifenesin-Codeine (Robitussin Ac) 10 Mg-100 Mg/5 Ml Syrp 5-10 ML PO Q6H PRN for COUGH, #120 ML FOR COUGH Metformin XR 24 HR (Glucophage XR 24 HR) 500 Mg Tab 850 MG PO BID Pantoprazole Sod (Protonix) 40 Mg Tabdr 40 MG PO DAILY, TAB Venlafaxine HCl (Effexor 75 Mg Tab) 75 Mg Tab 75 MG PO BID, TAB [Losartan Potassium] () 50 MG TAB 50 MG PO DAILY for HTN, #30 TAB NO REFILLS Refills Discontinued Medications: Azithromycin (Zithromax) 250 Mg Tab 250 MG PO DAILY for bronchitis, #3 TAB NO REFILLS Refills Prednisone (Prednisone) 5 Mg Jolynn 5 MG PO DIRECTED for bronchitis for 5 Days, JOLYNN NO REFILLS Refills Brodie Morgan MD Oct 03, 2017 16:25
== END 2017-10-03 15:16 | disposition home or self-care (01) ==
LOC: PHED 20:58 → PHEDA 23:17 → PH3A 09-30 00:52
PROVIDERS: ADMIT Hospitalist; ATTEND Hospitalist
DX: J44.0 Chronic obstructive pulmonary disease with (acute) lower respiratory infection (principal); J18.9 Pneumonia, unspecified organism; J44.1 Chronic obstructive pulmonary disease with (acute) exacerbation; J96.91 Respiratory failure, unspecified with hypoxia; J20.9 Acute bronchitis, unspecified; E11.9 Type 2 diabetes mellitus without complications; K21.9 Gastro-esophageal reflux disease without esophagitis; K76.0 Fatty (change of) liver, not elsewhere classified; R78.81 Bacteremia; E78.00 Pure hypercholesterolemia, unspecified; M19.042 Primary osteoarthritis, left hand; M19.041 Primary osteoarthritis, right hand; M47.9 Spondylosis, unspecified; F32.9 Major depressive disorder, single episode, unspecified; Z99.81 Dependence on supplemental oxygen; Z87.891 Personal history of nicotine dependence; Z79.899 Other long term (current) drug therapy; Z79.82 Long term (current) use of aspirin; Z85.828 Personal history of other malignant neoplasm of skin; Z23 Encounter for immunization
CPT/HCPCS: 71045; 80048; 80053; 82948; 84484; 85025; 87040; 87070; 87205; 87804; 90732; 93005; 94150; 94618; 94640; 94664; 96365; 96366; 96372; 96375; 96376; 99285; G0009; G0378; J0456; J0696; J1650; J1815; J2920; J2930; J7050; J7613; Q0163; 90471

== ENCOUNTER → 2017-11-26 | Outpatient (CLI) | payer MEDICARE, BC ==
[~2017-11-26] MED LIST changes: -AZIT250T74 PO; +Budeson-Formot 160-4.5 Mcg Inh INH; +LACTTAB8 PO; +LEVA500T33 PO; +PRED10 PO; -PRED5PAK PO
[2017-11-26 10:51] LABS: ALBUMIN 3.6 GM/DL (3.4-5.0); ALT (GPT) 107 U/L (10-53); AST (GOT) 87 U/L (15-37); BICARBONATE 23.3 MEQ/L (21.0-32.0); BLOOD UREA NITROGEN 14 MG/DL (7-18); CALCIUM 9.2 MG/DL (8.5-10.1); CHLORIDE 109 MEQ/L (98-107); CHOLESTEROL 166 MG/DL (120-200); CREATININE 1.06 MG/DL (0.50-1.00); GLOMERULAR FILTRATION RATE 50 ML/MIN (>89); GLUCOSE,FASTING 207 MG/DL (74-99); SODIUM (NA) 143 MEQ/L (136-145)
[2017-11-26 11:00] LABS: ALKALINE PHOSPHATASE 63 U/L (45-117); CHOLESTEROL/ HDL RATIO 4.51 RATIO; FREE T4 1.09 NG/DL (0.76-1.46); HDL CHOLESTEROL 36.8 MG/DL (40.0-60.0); LDL CHOLESTEROL 82 MG/DL (0-99); TOTAL BILIRUBIN ADULT 0.4 MG/DL (0.2-1.0); TRIGLYCERIDES 234 MG/DL (42-150)
[2017-11-26 16:14] LABS: HEMOGLOBIN A1C 7.3 % (4.3-6.0)
== END ==
LOC: PLAB 06:42
PROVIDERS: ATTEND Internal Medicine Endocrinology, Diabetes & Metabolism
DX: E11.9 Type 2 diabetes mellitus without complications (principal); I10 Essential (primary) hypertension; E55.9 Vitamin D deficiency, unspecified; C03.9 Malignant neoplasm of gum, unspecified
CPT/HCPCS: 36415; 80053; 80061; 82306; 83036; 84439; 84443

== ENCOUNTER → 2017-12-25 | Outpatient (CLI) | payer MEDICARE, BC ==
[2017-12-25 14:19] LABS: PROTHROMBIN TIME - PATIENT 10.6 SEC (9.8-11.6)
[2017-12-25 18:21] LABS: ALBUMIN 3.8 GM/DL (3.4-5.0); CREATININE 1.09 MG/DL (0.50-1.00); DIRECT BILIRUBIN ADULT 0.1 MG/DL (0.0-0.2)
[2017-12-25 18:23] LABS: INDIRECT BILIRUBIN 0.2 MG/DL (0.0-0.8); TOTAL BILIRUBIN ADULT 0.3 MG/DL (0.2-1.0); TOTAL PROTEIN 7.3 GM/DL (6.4-8.2)
== END ==
LOC: PLAB 13:30
PROVIDERS: ATTEND Internal Medicine Gastroenterology
DX: K75.81 Nonalcoholic steatohepatitis (NASH) (principal)
CPT/HCPCS: 36415; 80076; 82105; 82565; 84520; 85610